=== PATIENT | male | born 1995 | race Caucasian/White ===

== ENCOUNTER 2021-11-14 19:53 | Emergency (ER) | payer OTHER ==
[~2021-11-14] VITALS: Ht 172.7 cm; Wt 77.0 kg
[~2021-11-14 19:53] MED LIST: NALO4SPR NS
[2021-11-14 20:05] VITALS: BP 126/80
[2021-11-14] MEDS ORDERED: ONDANSETRON 4MG ODT PO STA (20:16)
[2021-11-14] MEDS ORDERED: VISCOUS LIDOCAINE 2% 15 ML UDC PO STA (20:16)
[2021-11-14] MEDS ORDERED: MAGNESIUM/ALUMINUM HYDROXIDE/SIMETHICONE 30ML UDC PO STA (20:16)
[2021-11-14] MEDS ORDERED: PANTOPRAZOLE 40MG DR TABLET PO ONE (20:30)
[2021-11-14 20:36] LABS: BASOPHILS % 0.4 % (0.0-2.0); HEMATOCRIT. 40.7 % (42.0-52.0); LYMPHOCYTES % 17.3 % (20.0-50.0); MEAN CORPUSCULAR HEMOGLOBIN 29.3 pg (28.0-32.0); MEAN CORPUSCULAR VOLUME 85.1 fL (80.0-94.0); MEAN PLATELET VOLUME 8.7 fl (7.4-10.4); NEUTROPHILS % 73.3 % (40.0-76.0); PLATELET 224 x1000/uL (130-400); RED BLOOD CELL COUNT 4.78 mill/uL (4.7-6.1); RED CELL DISTRIBUTION WIDTH 13.1 % (11.6-14.6)
[2021-11-14 20:42] LABS: CHLORIDE 103 mEq/L (98-107)
[2021-11-14 20:47] LABS: ETHANOL BLOOD < 10 mg/dL
[2021-11-14] MEDS ORDERED: ONDA4TAB5 MT (21:18)
[2021-11-14] MEDS ORDERED: PANT40SU MT (21:21)
[2021-11-14 21:23] LABS: CLARITY URINE CLEAR (CLEAR); COLOR URINE YELLOW (YELLOW); KETONES URINE 3+ (NEGATIVE); LEUKOCYTE ESTERASE URINE NEGATIVE (NEGATIVE); NITRITE URINE NEGATIVE (NEGATIVE); OCCULT BLOOD URINE TRACE (NEGATIVE); PROTEIN URINE NEGATIVE (NEGATIVE); SPECIFIC GRAVITY URINE 1.021 (1.005-1.030)
[2021-11-14 21:33] LABS: *AMPHETAMINES SCREEN URINE NEGATIVE (NEGATIVE); *BARBITURATES SCREEN URINE NEGATIVE (NEGATIVE); *BENZODIAZEPINES SCREEN URINE NEGATIVE (NEGATIVE)
[2021-11-14 21:34] LABS: *COCAINE SCREEN URINE NEGATIVE (NEGATIVE); CANNABINOID URINE SCREEN NEGATIVE (NEGATIVE); METHADONE URINE SCREEN NEGATIVE (NEGATIVE); OPIATES URINE SCREEN NEGATIVE (NEGATIVE); PHENCYCLIDINE URINE SCREEN NEGATIVE (NEGATIVE)
== END 2021-11-14 21:27 ==
LOC: ER 19:53
DX: R10.13 Epigastric pain (principal); R11.2 Nausea with vomiting, unspecified
CPT/HCPCS: 36415; 71045; 76705; 80053; 80305; 80320; 81003; 83690; 85025; 86850; 86900; 86901; 99285; Q0162; G0480

== ENCOUNTER 2021-12-11 19:13 | Emergency (ER) | payer SELFPAY ==
[~2021-12-11] VITALS: Ht 172.7 cm; Wt 79.0 kg
[~2021-12-11 19:13] MED LIST changes: +ONDA4TAB5 MT; +PANT40SU MT
[2021-12-11 19:27] VITALS: BP 126/78
== END 2021-12-11 23:36 | disposition left against medical advice (07) ==
LOC: ER 19:13
DX: Z53.21 Procedure and treatment not carried out due to patient leaving prior to being seen by health care provider (principal); I49.9 Cardiac arrhythmia, unspecified
CPT/HCPCS: 93005

== ENCOUNTER 2022-03-19 14:16 | Emergency (ER) | payer SELFPAY ==
[~2022-03-19] VITALS: Ht 172.7 cm; Wt 77.0 kg
[2022-03-19 14:32] VITALS: BP 160/100
[2022-03-19] MEDS: LORAZEPAM 1MG TABLET PO ONE ×2 (15:05→15:08)
== END 2022-03-19 16:09 | disposition left against medical advice (07) ==
LOC: ER 14:16
DX: T43.621A Poisoning by amphetamines, accidental (unintentional), initial encounter (principal); I10 Essential (primary) hypertension; Y92.9 Unspecified place or not applicable
CPT/HCPCS: 99283

== ENCOUNTER 2025-04-09 01:33 | Emergency (ER) | payer MEDICAID ==
[~2025-04-09] VITALS: Ht 172.7 cm; Wt 95.7 kg
[2025-04-09 02:17] VITALS: O2SAT 99
[2025-04-09 03:58] LABS: BASOPHILS % 0.5 % (0.0-2.0); EOSINOPHILS % 4.8 % (0.0-5.0); HEMATOCRIT. 43.4 % (42.0-52.0); HEMOGLOBIN. 14.7 g/dL (14.0-18.0); LYMPHOCYTES % 26.5 % (20.0-50.0); MEAN CORPUSCULAR HGB CONC 33.8 g/dL (31.0-37.0); MEAN CORPUSCULAR VOLUME 85.7 fL (80.0-94.0); MEAN PLATELET VOLUME 9.3 fl (7.4-10.4); MONOCYTES % 8.5 % (2.0-8.0); NEUTROPHILS % 59.7 % (40.0-76.0); PLATELET 222 x1000/uL (130-400); RED BLOOD CELL COUNT 5.07 mill/uL (4.7-6.1); RED CELL DISTRIBUTION WIDTH 14.4 % (11.6-14.6); WHITE BLOOD COUNT 8.2 x1000/uL (4.5-11.0)
[2025-04-09 04:03] LABS: CLARITY URINE CLEAR (CLEAR); COLOR URINE YELLOW (YELLOW); GLUCOSE URINE NEGATIVE (NEGATIVE); KETONES URINE NEGATIVE (NEGATIVE); LEUKOCYTE ESTERASE URINE NEGATIVE (NEGATIVE); NITRITE URINE NEGATIVE (NEGATIVE); OCCULT BLOOD URINE NEGATIVE (NEGATIVE); PH URINE 5.5 (4.5-8.0); PROTEIN URINE NEGATIVE (NEGATIVE); SPECIFIC GRAVITY URINE 1.015 (1.005-1.030); UROBILINOGEN URINE 0.2 E.U./dL (0.2-1.0)
[2025-04-09 04:07] LABS: CARBON DIOXIDE 31 mEq/L (21-32); CHLORIDE 104 mEq/L (98-107); POTASSIUM 4.2 mEq/L (3.5-5.1); SODIUM 141 mEq/L (136-145)
[2025-04-09 04:08] LABS: CALCIUM 10.4 mg/dL (8.7-10.4)
[2025-04-09 04:12] LABS: *AMPHETAMINES SCREEN URINE NEGATIVE (NEGATIVE)
[2025-04-09 04:12] LABS: CREATININE 1.1 mg/dL (0.6-1.3)
[2025-04-09 04:13] LABS: *BARBITURATES SCREEN URINE NEGATIVE (NEGATIVE); *BENZODIAZEPINES SCREEN URINE NEGATIVE (NEGATIVE); *COCAINE SCREEN URINE NEGATIVE (NEGATIVE); CANNABINOID URINE SCREEN NEGATIVE (NEGATIVE); ECSTASY MDMA SCREEN URINE NEGATIVE (NEGATIVE); METHADONE URINE SCREEN NEGATIVE (NEGATIVE); OPIATES URINE SCREEN NEGATIVE (NEGATIVE); PHENCYCLIDINE URINE SCREEN NEGATIVE (NEGATIVE)
[2025-04-09 04:13] LABS: ETHANOL BLOOD < 10 mg/dL (<10); GLUCOSE 104 mg/dL (70-105); UREA NITROGEN BLOOD 9 mg/dL (9-23)
[2025-04-09 04:14] LABS: ALANINE AMINOTRANSFERASE 19 IU/L (10-49); ASPARTATE AMINOTRANSFERASE 22 IU/L (<34)
[2025-04-09 04:15] LABS: ALBUMIN 5.2 g/dL (3.2-4.8); BILIRUBIN DIRECT 0.2 mg/dL (<=3.0); BILIRUBIN TOTAL 0.8 mg/dL (0.1-1.0); PROTEIN TOTAL 7.3 g/dL (6.0-8.3)
[2025-04-09 04:20] LABS: TROPONIN I HIGH SENSITIVITY < 4 ng/L (3.0-53)
[2025-04-09] MEDS ORDERED: MAG355OR21 MT (05:27)
[2025-04-09] MEDS ORDERED: ACET-2708 MT (05:27)
[2025-04-09] MEDS: MAGNESIUM/ALUMINUM HYDROXIDE/SIMETHICONE 30ML UDC PO NR (05:37)
[2025-04-09] MEDS: ACETAMINOPHEN 325MG TABLET PO NR (05:38)
[2025-04-09 05:40] VITALS: BP 129/77; PULSE 83; RESP 12; TEMP 36.8; O2SAT 98
== END 2025-04-09 05:46 | disposition home or self-care (01) ==
LOC: ER 01:33
DX: R10.13 Epigastric pain (principal); R07.89 Other chest pain; F15.90 Other stimulant use, unspecified, uncomplicated; Z79.899 Other long term (current) drug therapy
CPT/HCPCS: 36415; 71045; 80048; 80076; 80305; 80320; 81003; 84484; 85025; 93005; 99285; G0480